=== PATIENT | male | born 1990 | race Caucasian/White ===

== ENCOUNTER 2019-04-02 15:25 | Emergency (ER) | payer SELFPAY ==
[2019-04-02 15:37] VITALS: BP 126/85
[2019-04-02] MEDS ORDERED: OXYCODONE HCL IR 5 MG TABLET PO ONE (15:37)
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
[2019-04-02] MEDS ORDERED: KETOROLAC TROMETHAMINE 60 MG/2 ML SDV IM ONE (16:18)
[2019-04-02] MEDS ORDERED: MORPHINE SULFATE 10 MG/ML INJ IM ONE (16:19)
[2019-04-02] MEDS ORDERED: ONDANSETRON 4 MG TAB.RAPDIS PO ONE (16:19)
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
[2019-04-02] MEDS ORDERED: HYDROCODONE/ACETAMINOPHEN 5-325 MG (6 TAB/ER DISP) PO PRN (17:28)
== END 2019-04-02 17:46 | disposition home or self-care (01) ==
LOC: ER 15:25
DX: T20.26XA Burn of second degree of forehead and cheek, initial encounter (principal); T21.22XA Burn of second degree of abdominal wall, initial encounter; T20.16XA Burn of first degree of forehead and cheek, initial encounter; T20.10XA Burn of first degree of head, face, and neck, unspecified site, initial encounter; T23.122A Burn of first degree of single left finger (nail) except thumb, initial encounter; X12.XXXA Contact with other hot fluids, initial encounter; F17.200 Nicotine dependence, unspecified, uncomplicated
CPT/HCPCS: J1885; S0119; J2270; 96372; 99283